=== PATIENT | female | born 1950 | race African-American/Black ===

== ENCOUNTER 2020-04-25 10:44 | Inpatient (IN) | payer OTHER ==
[2020-04-25] MEDS ORDERED: ONDANSETRON 4 MG/2 ML VIAL IVPUSH ONE (11:39)
[2020-04-25] MEDS ORDERED: LACTATED RINGERS SOLUTION 1000 ML INFUS.BAG IV ONE (11:39)
[2020-04-25] MEDS ORDERED: ACETAMINOPHEN 1000 MG/100 ML VIAL (NON FORMULARY) IVPB ONE (12:00)
[2020-04-25] MEDS ORDERED: ONDANSETRON 4 MG/2 ML VIAL ONE (12:12)
[2020-04-25] MEDS ORDERED: ACETAMINOPHEN INJECTION 100 ML IVPB ONE (12:12)
[2020-04-25 12:24] LABS: VENOUS BASE EXCESS 8.5 mmol/L (-2-2); VENOUS O2 SATURATION 67.9 % (70-80); VENOUS PCO2 46.2 mmHg (38-52); VENOUS PH 7.476 (7.310-7.410)
[2020-04-25 12:29] LABS: BASO % 0.5 % (0-2.0); HEMATOCRIT 35.4 % (32.4-45.2); HEMOGLOBIN 12.2 GM/dL (10.7-15.3); LYMPH % 22.8 % (8-40); MCH 31.2 pg (25.7-33.7); MCHC 34.5 g/dl (32.0-36.0); MEAN CELL VOLUME 90.4 fl (80-96); MEAN PLT VOLUME 8.9 fl (7.5-11.1); MONO % 7.6 % (3.8-10.2); NEUT % 69.1 % (42.8-82.8); PLATELET COUNT 183 K/MM3 (134-434); RBC 3.92 M/mm3 (3.60-5.2); RDW 12.4 % (11.6-15.6); WHITE BLOOD COUNT 4.4 K/mm3 (4.0-10.0)
[2020-04-25 12:47] LABS: CHLORIDE 98 mmol/L (98-107); SODIUM 138 mmol/L (136-145)
[2020-04-25 12:49] LABS: CALCIUM 8.6 mg/dL (8.5-10.1)
[2020-04-25 12:50] LABS: ALBUMIN 3.6 g/dl (3.4-5.0); BLOOD UREA NITROGEN 12.7 mg/dL (7-18); CO2 32 mmol/L (21-32); GLUCOSE,RANDOM 109 mg/dL (74-106)
[2020-04-25 12:52] LABS: BILIRUBIN,DIRECT 0.5 mg/dL (0.0-0.2)
[2020-04-25 12:53] LABS: CREATININE 0.8 mg/dL (0.55-1.3); SGOT/AST 54 U/L (15-37); SGPT/ALT 25 U/L (13-61)
[2020-04-25 12:54] LABS: BILIRUBIN,TOTAL 1.3 mg/dL (0.2-1); TOT PROT 7.1 g/dl (6.4-8.2)
[2020-04-25 12:55] LABS: LDH 373 U/L (84-246)
[2020-04-25 12:56] LABS: ALK PHOS 53 U/L (45-117)
[2020-04-25 13:07] LABS: INR 1.07 (0.83-1.09); PROTHROMBIN TIME (PATIENT) 12.9 SEC (9.7-13.0)
[2020-04-25 13:10] LABS: ACTIVATED PTT 33.1 SECONDS (25.2-36.5)
[2020-04-25 13:13] LABS: ANION GAP 8 MMOL/L (8-16)
[2020-04-25 13:22] LABS: POTASSIUM 2.9 mmol/L (3.5-5.1)
[2020-04-25] MEDS ORDERED: POTASSIUM CHLORIDE ORAL LIQUID 20 MEQ/15 ML PO ONE (13:35)
[2020-04-25] MEDS ORDERED: POTASSIUM CHLORIDE TABS 20 MEQ TABLET.ER (FP) PO ONE (13:47)
[2020-04-25] MEDS ORDERED: POTASSIUM CHLORIDE ORAL LIQUID 20 MEQ/15 ML ONE (13:49)
[2020-04-25 14:26] LABS: EPI CELLS >36 /uL (0-25.1); HYALINE CASTS 6 /uL (0-3.1); URINE BACTERIA >9,000 /uL (0-1359); URINE WBC 96 /uL (0-25.8)
[2020-04-25 14:29] LABS: URINE APPEARANCE Clear; URINE BILIRUBIN 2+ (NEGATIVE); URINE COLOR Yellow; URINE GLUCOSE (UA) Negative (NEGATIVE); URINE KETONE Trace (NEGATIVE); URINE LEUK ESTERASE Negative (NEGATIVE); URINE NITRITE Negative (NEGATIVE); URINE PROTEIN 2+ (NEGATIVE); URINE UROBILINOGEN >=8.0 E.U./dl mg/dL (0.2-1.0)
[2020-04-25] MEDS ORDERED: DEXAMETHASONE SOD PHOSPHATE 4 MG/1 ML VIAL IVPUSH ONE (14:51)
[2020-04-25] MEDS ORDERED: DEXAMETHASONE SOD PHOSPHATE 4 MG/1 ML VIAL ONE (14:57)
[2020-04-25 15:46] LABS: URINE CRYSTALS MOD /hpf; URINE RBC 709.6 /uL (0-23.9)
[2020-04-25] MEDS: POTASSIUM CHLORIDE 30 MEQ in SODIUM CHLORIDE 1,000 ML IV SCH (20:29)
[2020-04-26 00:01] LABS: POTASSIUM 3.6 mmol/L (3.5-5.1)
[2020-04-26 00:02] LABS: CALCIUM 8.2 mg/dL (8.5-10.1)
[2020-04-26 00:03] LABS: BLOOD UREA NITROGEN 12.8 mg/dL (7-18)
[2020-04-26 00:06] LABS: CREATININE 0.7 mg/dL (0.55-1.3)
[2020-04-26] MEDS ORDERED: PT OWN MED DRAWER 7, Y5N ONE (08:22)
[2020-04-26] MEDS: POTASSIUM CHLORIDE 30 MEQ in SODIUM CHLORIDE 1,000 ML IV SCH ×2 (10:00→22:55)
[2020-04-26] MEDS: ASCORBIC ACID 500 MG TABLET (FP) PO SCH (10:02)
[2020-04-26] MEDS: FAMOTIDINE 20 MG TABLET PO SCH (10:02)
[2020-04-26] MEDS: ZINC SULFATE 220 MG CAPSULE (FP) PO SCH (10:02)
[2020-04-26] MEDS: DEXAMETHASONE 4 MG TABLET (FP) PO SCH (10:02)
[2020-04-26 10:08] LABS: BASO % 0.3 % (0-2.0); HEMATOCRIT 32.9 % (32.4-45.2); HEMOGLOBIN 11.7 GM/dL (10.7-15.3); LYMPH % 21.3 % (8-40); MCH 31.9 pg (25.7-33.7); MCHC 35.4 g/dl (32.0-36.0); MEAN PLT VOLUME 8.7 fl (7.5-11.1); MONO % 5.2 % (3.8-10.2); NEUT % 73.2 % (42.8-82.8); PLATELET COUNT 174 K/MM3 (134-434); RBC 3.66 M/mm3 (3.60-5.2); RDW 12.7 % (11.6-15.6); WHITE BLOOD COUNT 5.2 K/mm3 (4.0-10.0)
[2020-04-26] MEDS: ENOXAPARIN NA (PORCINE) 40 MG/0.4 ML DISP.SYRIN SQ SCH (10:14)
[2020-04-26 10:33] LABS: POTASSIUM 3.7 mmol/L (3.5-5.1)
[2020-04-26 10:35] LABS: CALCIUM 8.5 mg/dL (8.5-10.1)
[2020-04-26 10:36] LABS: BLOOD UREA NITROGEN 16.1 mg/dL (7-18); MAGNESIUM 1.9 mg/dL (1.8-2.4)
[2020-04-26 10:38] LABS: BILIRUBIN,DIRECT 0.6 mg/dL (0.0-0.2); PHOSPHOROUS 3.4 mg/dL (2.5-4.9)
[2020-04-26 10:39] LABS: CREATININE 0.8 mg/dL (0.55-1.3)
[2020-04-26 10:40] LABS: BILIRUBIN,TOTAL 1.2 mg/dL (0.2-1); TOT PROT 6.2 g/dl (6.4-8.2)
[2020-04-26] MEDS ORDERED: ALBUTEROL SO4 HFA INHALER IH PRN (12:23)
[2020-04-27] MEDS: POTASSIUM CHLORIDE 30 MEQ in SODIUM CHLORIDE 1,000 ML IV SCH ×2 (02:11→10:45)
[2020-04-27] MEDS ORDERED: ACETAMINOPHEN 325 MG TABLET (FP) PO ONE (06:52)
[2020-04-27] MEDS ORDERED: ACETAMINOPHEN 325 MG TABLET (FP) PO PRN (09:08)
[2020-04-27 10:30] LABS: BASO % 0.1 % (0-2.0); HEMATOCRIT 29.8 % (32.4-45.2); HEMOGLOBIN 10.2 GM/dL (10.7-15.3); MCH 31.3 pg (25.7-33.7); MCHC 34.2 g/dl (32.0-36.0); MEAN CELL VOLUME 91.6 fl (80-96); MEAN PLT VOLUME 8.9 fl (7.5-11.1); MONO % 6.4 % (3.8-10.2); NEUT % 73.5 % (42.8-82.8); PLATELET COUNT 175 K/MM3 (134-434); RBC 3.25 M/mm3 (3.60-5.2); RDW 12.6 % (11.6-15.6); WHITE BLOOD COUNT 5.6 K/mm3 (4.0-10.0)
[2020-04-27] MEDS: ENOXAPARIN NA (PORCINE) 40 MG/0.4 ML DISP.SYRIN SQ SCH (10:44)
[2020-04-27] MEDS: FAMOTIDINE 20 MG TABLET PO SCH (10:44)
[2020-04-27] MEDS: ZINC SULFATE 220 MG CAPSULE (FP) PO SCH (10:44)
[2020-04-27] MEDS: DEXAMETHASONE 4 MG TABLET (FP) PO SCH (10:44)
[2020-04-27] MEDS: ASCORBIC ACID 500 MG TABLET (FP) PO SCH (10:44)
[2020-04-27 10:55] LABS: ALBUMIN 2.8 g/dl (3.4-5.0); MAGNESIUM 1.8 mg/dL (1.8-2.4)
[2020-04-27 10:59] LABS: CREATININE 0.9 mg/dL (0.55-1.3); PHOSPHOROUS 1.8 mg/dL (2.5-4.9)
[2020-04-27 11:00] LABS: BILIRUBIN,TOTAL 1.2 mg/dL (0.2-1); TOT PROT 5.6 g/dl (6.4-8.2)
[2020-04-27] MEDS ORDERED: NAPH,MB-DB/K PH,MBDB POWDER PACKET PO ONE (14:39)
[2020-04-28] MEDS: POTASSIUM CHLORIDE 30 MEQ in SODIUM CHLORIDE 1,000 ML IV SCH ×2 (02:19→13:13)
[2020-04-28 08:37] LABS: BASO % 0.1 % (0-2.0); HEMATOCRIT 30.7 % (32.4-45.2); HEMOGLOBIN 10.5 GM/dL (10.7-15.3); LYMPH % 10.5 % (8-40); MCH 31.4 pg (25.7-33.7); MCHC 34.2 g/dl (32.0-36.0); MEAN CELL VOLUME 91.8 fl (80-96); MEAN PLT VOLUME 8.9 fl (7.5-11.1); MONO % 4.4 % (3.8-10.2); PLATELET COUNT 192 K/MM3 (134-434); RBC 3.34 M/mm3 (3.60-5.2); RDW 12.6 % (11.6-15.6); WHITE BLOOD COUNT 7.6 K/mm3 (4.0-10.0)
[2020-04-28 08:59] LABS: POTASSIUM 3.7 mmol/L (3.5-5.1)
[2020-04-28 09:14] LABS: ALBUMIN 2.8 g/dl (3.4-5.0); BLOOD UREA NITROGEN 10.6 mg/dL (7-18); CALCIUM 8.1 mg/dL (8.5-10.1)
[2020-04-28 09:15] LABS: MAGNESIUM 1.7 mg/dL (1.8-2.4)
[2020-04-28 09:17] LABS: CREATININE 0.6 mg/dL (0.55-1.3); PHOSPHOROUS 2.4 mg/dL (2.5-4.9)
[2020-04-28 09:19] LABS: BILIRUBIN,TOTAL 0.9 mg/dL (0.2-1); TOT PROT 5.7 g/dl (6.4-8.2)
[2020-04-28] MEDS: ASCORBIC ACID 500 MG TABLET (FP) PO SCH (09:36)
[2020-04-28] MEDS: ZINC SULFATE 220 MG CAPSULE (FP) PO SCH (09:36)
[2020-04-28] MEDS: ENOXAPARIN NA (PORCINE) 40 MG/0.4 ML DISP.SYRIN SQ SCH (09:36)
[2020-04-28] MEDS: DEXAMETHASONE 4 MG TABLET (FP) PO SCH (09:37)
[2020-04-28] MEDS: FAMOTIDINE 20 MG TABLET PO SCH (09:38)
[2020-04-28] MEDS ORDERED: guaiFENesin/D-METHORPHAN HB 10 ML UNIT-DOSE CUPS PO PRN (13:18)
[2020-04-28] MEDS ORDERED: CODEINE SO4 30 MG TABLET PO PRN (13:19)
[2020-04-28 16:34] VITALS: BMI 24.8
[2020-04-28] MEDS ORDERED: REMDESIVIR 200 MG in SODIUM CHLORIDE 210 ML IVPB ONE (17:00)
[2020-04-29] MEDS: POTASSIUM CHLORIDE 30 MEQ in SODIUM CHLORIDE 1,000 ML IV SCH ×4 (02:44→22:50)
[2020-04-29] MEDS: DEXAMETHASONE 4 MG TABLET (FP) PO SCH (09:03)
[2020-04-29] MEDS: ASCORBIC ACID 500 MG TABLET (FP) PO SCH (09:04)
[2020-04-29] MEDS: ZINC SULFATE 220 MG CAPSULE (FP) PO SCH (09:04)
[2020-04-29] MEDS: FAMOTIDINE 20 MG TABLET PO SCH (09:04)
[2020-04-29] MEDS: ENOXAPARIN NA (PORCINE) 40 MG/0.4 ML DISP.SYRIN SQ SCH (09:04)
[2020-04-29 09:26] LABS: BASO % 0.1 % (0-2.0); HEMATOCRIT 30.6 % (32.4-45.2); HEMOGLOBIN 10.5 GM/dL (10.7-15.3); LYMPH % 12.6 % (8-40); MCH 31.5 pg (25.7-33.7); MCHC 34.1 g/dl (32.0-36.0); MEAN CELL VOLUME 92.3 fl (80-96); MEAN PLT VOLUME 8.4 fl (7.5-11.1); NEUT % 80.3 % (42.8-82.8); PLATELET COUNT 216 K/MM3 (134-434); RBC 3.32 M/mm3 (3.60-5.2); RDW 12.7 % (11.6-15.6); WHITE BLOOD COUNT 7.2 K/mm3 (4.0-10.0)
[2020-04-29 09:41] LABS: POTASSIUM 4.1 mmol/L (3.5-5.1)
[2020-04-29 09:48] LABS: ALBUMIN 2.6 g/dl (3.4-5.0); BLOOD UREA NITROGEN 12.2 mg/dL (7-18)
[2020-04-29 09:49] LABS: CALCIUM 8.2 mg/dL (8.5-10.1)
[2020-04-29 09:51] LABS: CREATININE 0.6 mg/dL (0.55-1.3)
[2020-04-29 09:53] LABS: BILIRUBIN,TOTAL 0.8 mg/dL (0.2-1); TOT PROT 5.7 g/dl (6.4-8.2)
[2020-04-29] MEDS: REMDESIVIR 100 MG in SODIUM CHLORIDE 230 ML IVPB SCH (17:48)
[2020-04-30] MEDS: POTASSIUM CHLORIDE 30 MEQ in SODIUM CHLORIDE 1,000 ML IV SCH ×3 (05:16→15:36)
[2020-04-30 08:48] LABS: BASO % 0.1 % (0-2.0); HEMATOCRIT 32.1 % (32.4-45.2); HEMOGLOBIN 10.9 GM/dL (10.7-15.3); LYMPH % 16.8 % (8-40); MCH 31.4 pg (25.7-33.7); MEAN CELL VOLUME 92.4 fl (80-96); MEAN PLT VOLUME 8.4 fl (7.5-11.1); MONO % 11.7 % (3.8-10.2); NEUT % 71.4 % (42.8-82.8); PLATELET COUNT 301 K/MM3 (134-434); RBC 3.47 M/mm3 (3.60-5.2); RDW 12.8 % (11.6-15.6); WHITE BLOOD COUNT 6.1 K/mm3 (4.0-10.0)
[2020-04-30 09:05] LABS: POTASSIUM 4.5 mmol/L (3.5-5.1)
[2020-04-30 09:13] LABS: ALBUMIN 2.8 g/dl (3.4-5.0); BLOOD UREA NITROGEN 13.4 mg/dL (7-18); CALCIUM 8.9 mg/dL (8.5-10.1)
[2020-04-30 09:16] LABS: CREATININE 0.7 mg/dL (0.55-1.3)
[2020-04-30 09:17] LABS: BILIRUBIN,TOTAL 0.8 mg/dL (0.2-1); PHOSPHOROUS 2.7 mg/dL (2.5-4.9); TOT PROT 6.3 g/dl (6.4-8.2)
[2020-04-30] MEDS: ZINC SULFATE 220 MG CAPSULE (FP) PO SCH (10:30)
[2020-04-30] MEDS: ASCORBIC ACID 500 MG TABLET (FP) PO SCH (10:30)
[2020-04-30] MEDS: DEXAMETHASONE 4 MG TABLET (FP) PO SCH (10:31)
[2020-04-30] MEDS: ENOXAPARIN NA (PORCINE) 40 MG/0.4 ML DISP.SYRIN SQ SCH (10:31)
[2020-04-30] MEDS: FAMOTIDINE 20 MG TABLET PO SCH (10:31)
[2020-04-30] MEDS ORDERED: DOCUSATE SODIUM 100 MG CAPSULE (FP) PO ONE (13:57)
[2020-04-30] MEDS ORDERED: POLYETHYLENE GLYCOL 3350 119 GM BTL PO ONE (13:57)
[2020-04-30] MEDS: REMDESIVIR 100 MG in SODIUM CHLORIDE 230 ML IVPB SCH (16:13)
[2020-05-01] MEDS: POTASSIUM CHLORIDE 30 MEQ in SODIUM CHLORIDE 1,000 ML IV SCH (05:59)
[2020-05-01 09:48] LABS: BASO % 0.2 % (0-2.0); HEMATOCRIT 33.3 % (32.4-45.2); LYMPH % 16.7 % (8-40); MCH 30.8 pg (25.7-33.7); MCHC 33.1 g/dl (32.0-36.0); MEAN PLT VOLUME 8.4 fl (7.5-11.1); MONO % 11.4 % (3.8-10.2); NEUT % 71.7 % (42.8-82.8); PLATELET COUNT 398 K/MM3 (134-434); RBC 3.58 M/mm3 (3.60-5.2); RDW 12.7 % (11.6-15.6)
[2020-05-01 10:08] LABS: POTASSIUM 4.5 mmol/L (3.5-5.1)
[2020-05-01 10:12] LABS: ALBUMIN 2.8 g/dl (3.4-5.0); BLOOD UREA NITROGEN 15.7 mg/dL (7-18); CALCIUM 8.7 mg/dL (8.5-10.1)
[2020-05-01 10:16] LABS: CREATININE 0.6 mg/dL (0.55-1.3)
[2020-05-01 10:17] LABS: BILIRUBIN,TOTAL 0.6 mg/dL (0.2-1); TOT PROT 6.2 g/dl (6.4-8.2)
[2020-05-01] MEDS: ZINC SULFATE 220 MG CAPSULE (FP) PO SCH (10:37)
[2020-05-01] MEDS: ASCORBIC ACID 500 MG TABLET (FP) PO SCH (10:38)
[2020-05-01] MEDS: FAMOTIDINE 20 MG TABLET PO SCH (10:38)
[2020-05-01] MEDS: ENOXAPARIN NA (PORCINE) 40 MG/0.4 ML DISP.SYRIN SQ SCH (10:38)
[2020-05-01] MEDS: DEXAMETHASONE 4 MG TABLET (FP) PO SCH (10:38)
[2020-05-01] MEDS: REMDESIVIR 100 MG in SODIUM CHLORIDE 230 ML IVPB SCH (17:14)
[2020-05-02] MEDS: FAMOTIDINE 20 MG TABLET PO SCH (09:52)
[2020-05-02] MEDS: ZINC SULFATE 220 MG CAPSULE (FP) PO SCH (09:52)
[2020-05-02] MEDS: ENOXAPARIN NA (PORCINE) 40 MG/0.4 ML DISP.SYRIN SQ SCH (09:52)
[2020-05-02] MEDS: DEXAMETHASONE 4 MG TABLET (FP) PO SCH (09:52)
[2020-05-02] MEDS: ASCORBIC ACID 500 MG TABLET (FP) PO SCH (09:52)
[2020-05-02 09:55] LABS: HEMATOCRIT 31.4 % (32.4-45.2); HEMOGLOBIN 10.9 GM/dL (10.7-15.3); LYMPH % 17.3 % (8-40); MCH 31.3 pg (25.7-33.7); MCHC 34.8 g/dl (32.0-36.0); MEAN CELL VOLUME 89.9 fl (80-96); MONO % 8.9 % (3.8-10.2); NEUT % 73.8 % (42.8-82.8); PLATELET COUNT 473 K/MM3 (134-434); RBC 3.49 M/mm3 (3.60-5.2); RDW 12.4 % (11.6-15.6); WHITE BLOOD COUNT 11.9 K/mm3 (4.0-10.0)
[2020-05-02 10:22] LABS: POTASSIUM 3.9 mmol/L (3.5-5.1)
[2020-05-02 10:28] LABS: BLOOD UREA NITROGEN 18.5 mg/dL (7-18)
[2020-05-02 10:29] LABS: ALBUMIN 2.8 g/dl (3.4-5.0)
[2020-05-02 10:30] LABS: PHOSPHOROUS 3.7 mg/dL (2.5-4.9)
[2020-05-02 10:31] LABS: CREATININE 0.6 mg/dL (0.55-1.3)
[2020-05-02 10:33] LABS: TOT PROT 6.2 g/dl (6.4-8.2)
[2020-05-02] MEDS ORDERED: PT OWN MED DRAWER 7, Y5N ONE (13:27)
[2020-05-02] MEDS: REMDESIVIR 100 MG in SODIUM CHLORIDE 230 ML IVPB SCH (17:40)
[2020-05-03 09:41] LABS: HEMATOCRIT 34.4 % (32.4-45.2); HEMOGLOBIN 11.6 GM/dL (10.7-15.3); MCH 31.1 pg (25.7-33.7); MCHC 33.7 g/dl (32.0-36.0); MEAN CELL VOLUME 92.5 fl (80-96); MEAN PLT VOLUME 8.3 fl (7.5-11.1); PLATELET COUNT 497 K/MM3 (134-434); RBC 3.72 M/mm3 (3.60-5.2); RDW 12.9 % (11.6-15.6); WHITE BLOOD COUNT 11.4 K/mm3 (4.0-10.0)
[2020-05-03] MEDS: FAMOTIDINE 20 MG TABLET PO SCH (09:46)
[2020-05-03] MEDS: ASCORBIC ACID 500 MG TABLET (FP) PO SCH (09:46)
[2020-05-03] MEDS: ZINC SULFATE 220 MG CAPSULE (FP) PO SCH (09:46)
[2020-05-03] MEDS: DEXAMETHASONE 4 MG TABLET (FP) PO SCH (09:46)
[2020-05-03 10:05] LABS: POTASSIUM 4.1 mmol/L (3.5-5.1)
[2020-05-03 10:12] LABS: BLOOD UREA NITROGEN 19.8 mg/dL (7-18)
[2020-05-03 10:15] LABS: BILIRUBIN,TOTAL 0.6 mg/dL (0.2-1); CREATININE 0.7 mg/dL (0.55-1.3); TOT PROT 6.5 g/dl (6.4-8.2)
[2020-05-03 10:22] LABS: CALCIUM 8.8 mg/dL (8.5-10.1)
[2020-05-04] MEDS: DEXAMETHASONE 4 MG TABLET (FP) PO SCH (10:30)
[2020-05-04] MEDS: ASCORBIC ACID 500 MG TABLET (FP) PO SCH (10:31)
[2020-05-04] MEDS: FAMOTIDINE 20 MG TABLET PO SCH (10:31)
[2020-05-04] MEDS: ZINC SULFATE 220 MG CAPSULE (FP) PO SCH (10:31)
[2020-05-04] MEDS: CHOLECALCIFEROL (VIT D3) 1,000 UNIT (25 MCG) TABLET PO SCH (10:31)
[2020-05-05] MEDS: FAMOTIDINE 20 MG TABLET PO SCH (11:29)
[2020-05-05] MEDS: ASCORBIC ACID 500 MG TABLET (FP) PO SCH (11:29)
[2020-05-05] MEDS: ZINC SULFATE 220 MG CAPSULE (FP) PO SCH (11:29)
[2020-05-05] MEDS: CHOLECALCIFEROL (VIT D3) 1,000 UNIT (25 MCG) TABLET PO SCH (11:29)
[2020-05-05] MEDS ORDERED: TRIMETHOBENZAMIDE HCL 300 MG CAPSULE PO ONE (14:32)
[2020-05-05 15:53] VITALS: BP 111/79; PULSE 85
[2020-05-05 16:19] VITALS: TEMP 99
== END 2020-05-05 17:58 | disposition home or self-care (01) | DRG 137 ==
LOC: JER 10:44 → JERBED 14:11 → J5S 04-26 05:12
PROVIDERS: ADMIT Internal Medicine
PROC: XW033E5 Introduction of Remdesivir Anti-infective into Peripheral Vein, Percutaneous Approach, New Technology Group 5 (ICD-10-PCS; principal; 2020-04-29)
PROC: XW13325 Transfusion of Convalescent Plasma (Nonautologous) into Peripheral Vein, Percutaneous Approach, New Technology Group 5 (ICD-10-PCS; 2020-04-29)
DX: U07.1 COVID-19 (principal); I10 Essential (primary) hypertension; A08.39 Other viral enteritis; J12.82 Pneumonia due to coronavirus disease 2019; E87.6 Hypokalemia; E78.5 Hyperlipidemia, unspecified; K59.00 Constipation, unspecified; R53.1 Weakness
CPT/HCPCS: 36415; 36430; 71045-TC-FY; 74177-TC; 80048; 80053; 80076; 81003; 82248; 82550; 82553; 82728; 82803; 83605; 83615; 83735; 84100; 84443; 84484; 85025; 85027; 85379; 85610; 85730; 86140; 86850; 86900; 86901; 87040; 87086; 87804; 93005; 93010; 94010; 94761; 97116-GP; 97162-GP; 99285-25; C9399; C9803; J0131; P9017; Q9967; U0003